=== PATIENT | female | born 1975 | race Native Hawaiian/Other Pacific Islander ===

== ENCOUNTER 2022-01-08 19:42 | Emergency (ER) | payer OTHER ==
[~2022-01-08] VITALS: Ht 160 cm; Wt 74.8 kg
[2022-01-08 19:47] VITALS: BP 131/80; TEMP 98.6
[2022-01-08] MEDS ORDERED: ASPIRIN 8181 MG PO (20:50)
[2022-01-08] MEDS ORDERED: ALLERGY RELF10 MG PO (20:50)
[2022-01-08] MEDS ORDERED: PROTONIX20 MG PO (20:50)
[2022-01-08] MEDS ORDERED: CRESTOR20 MG PO ×2 (20:50→20:53)
[2022-01-08] MEDS ORDERED: ARNUITY EL50 MCG/ACT INH (20:51)
[2022-01-08 20:52] LABS: PLATELET COUNT 198 K/uL (152-353)
[2022-01-08] MEDS ORDERED: NICODERM C14 MG/241 TD (20:52)
[2022-01-08 20:58] LABS: POTASSIUM 4.4 mmol/L (3.6-5.2)
[2022-01-08 21:17] LABS: PARTIAL THROMBOPLASTIN TIME 26.4 SECONDS (24.5-33.6)
== END 2022-01-08 23:45 | disposition home or self-care (01) ==
LOC: ED 19:42
PROVIDERS: Emergency Medicine Emergency Medical Services
DX: J20.9 Acute bronchitis, unspecified (principal); K59.00 Constipation, unspecified; R06.02 Shortness of breath
CPT/HCPCS: 36415; 80053; 82150; 83690; 83735; 83880; 84484; 85027; 85379; 85610; 85730; 93005; 96374; 96375; 99284; J1885; J3490